=== PATIENT | female | born 1995 | race Caucasian/White ===

== ENCOUNTER 2018-07-20 10:55 | Emergency (ER) | payer OTHER, MEDICARE, MEDICAID, SELFPAY ==
[2018-07-20 10:58] VITALS: BP 120/85; PULSE 74; RESP 14; TEMP 36.5; O2SAT 98; BMI 42.0
[2018-07-20 11:43] LABS: Add Manual Diff / Slide Review NO; Basophils Percent Auto 0.5 % (0-2); Eosinophils Percent Auto 0.7 % (2-4); Hemoglobin 13.3 g/dL (12.0-16.0); Lymphocytes Percent Auto 25.6 % (25-40); Mean Corpuscular HGB Conc 34.9 % (30-36); Mean Corpuscular Hemoglobin 31.2 PG (26-34); Mean Corpuscular Volume 89.4 fL (80-100); Monocytes Percent Auto 10.3 % (3-14); Neutrophils Absolute Auto 3000 /uL (3000-5900); Neutrophils Percent Auto 62.9 % (50-75); Platelet Count 149 X10^3/uL (150-400); Red Blood Cell Count 4.25 X10^6/uL (4.0-5.2); Red Cell Distribution Width 11.7 % (11.6-14.8); White Blood Cell Count 4.8 X10^3/uL (4.5-11.0)
[2018-07-20 11:51] LABS: INR 1.1 (0.9-1.3); Prothrombin Time 11.6 SECONDS (10.1-12.7)
[2018-07-20 11:53] LABS: PTT Partial Thromboplastin Tim 21 SECONDS (26.4-36.2)
[2018-07-20 11:55] LABS: Alanine Aminotransferase 21 IU/L (9-52); Albumin Globulin Ratio 1.6 (1.0-2.8); Alkaline Phosphatase 49 U/L (38-126); Aspartate Aminotransferase 23 IU/L (14-36); Bilirubin Total 0.3 mg/dL (0.2-1.3); Blood Urea Nitrogen 7 mg/dL (7-17); Calcium 8.8 mg/dL (8.4-10.2); Carbon Dioxide 21 mmol/L (22-32); Chloride 107 mmol/L (98-107); Estimated Glomerular Filt Rate > 60.0 mL/min (>60); Globulin 2.5 g/dL (1.7-4.1); Glucose 132 mg/dL (70-100); Potassium 3.8 mmol/L (3.4-5.1); Sodium 141 mmol/L (137-145); Total Protein 6.5 g/dL (6.3-8.2)
[2018-07-20 11:56] LABS: HEMOLYSIS < 15 (0-50); Lipase 24 U/L (23-300)
[2018-07-20 12:34] VITALS: BP 109/72; PULSE 69; RESP 16; TEMP 36.8; O2SAT 98
--- NOTE | 2018-07-20 12:41 | DI.RAD.S_ITS ---
PROCEDURE: XR ACUTE ABDOMEN SERIES INDICATIONS: abd, sob, blood in stool, lymph node neck TECHNIQUE: One view chest and two views of the abdomen were acquired. COMPARISON: None. FINDINGS: Surgical changes and devices: None. Chest: Lungs are clear. Heart size is normal. No pleural effusions. No pneumoperitoneum. Abdomen: Bowel gas pattern is normal. No suspicious calcifications. Visualized solid organ contours appear normal. Bones: No suspicious bony lesions. IMPRESSION: No evidence of bowel structure no gross free air. No acute cardiopulmonary pathology. Dictated by: Gary Carrasquillo M.D. on 07/20/2018 at 13:37 Approved by: Gary Carrasquillo M.D. on 07/20/2018 at 13:42
--- NOTE | 2018-07-20 12:43 | ED.ABDPAIN ---
HPI - Abdominal Pain General Chief Complaint: Abdominal Pain Stated Complaint: lymph nodes swollen, fatigued, blood in stool Time Seen by Provider: 07/20/18 12:25 Source: patient and family Mode of arrival: ambulatory Limitations: no limitations History of Present Illness HPI narrative: This is a 22-year-old female who comes to the emergency department with multiple concerns. Patient states she has some swelling of the lymph nodes on the right side of her neck. This is been present for several days and is tender. She states that she has been having some abdominal pain which she states she has abdominal pain intermittently and takes medication for sometimes but has been worse lately. She states she has also had some blood in her stool. She describes it as being on the toilet paper when she wipes. Patient has not had any fevers she has had a little bit of upper respiratory congestion consistent with a cold according to her. She is not having any ear pain. She has felt a little short of breath for the last couple weeks. She has felt more fatigued but states that she has chronic fatigue so it is difficult for to tell if this is an exacerbation versus something different. Her abdominal pain she has had some workup for and had an ex lap which was for endometriosis and was negative. She states that her stool seems sort of mucousy. She has not had a lot of frequency, urgency or dysuria. No new rashes or skin changes. Patient has not had any new medication changes recently. Patient has a history significant for postural tachycardia syndrome. Fibromyalgia. She states that she was evaluated with ex lap for endometriosis on although it was negative she suspects she does have it in is seeing a new specialty physician. Related Data Home Medications Medication Instructions Recorded Confirmed norethin-e.estradiol triphasic 1 ea PO DAILY #0 12/08/17 07/20/18 [Alyacen (28)] acetaminophen 650 mg PO PRN PRN #0 12/15/17 07/20/18 albuterol sulfate [Ventolin HFA] 2 puff INHALATION Q4H PRN 07/20/18 07/20/18 hydroxyzine HCl 1 tab PO Q8H PRN 07/20/18 07/20/18 propranolol 1 tab PO TID 07/20/18 07/20/18 tramadol 1 tab PO BID PRN 07/20/18 07/20/18 Previous Rx's Medication Instructions Recorded oxycodone-acetaminophen [Percocet] 0 tab PO Q4HP PRN #20 tab 12/15/17 Allergies Allergy/AdvReac Type Severity Reaction Status Date / Time azithromycin [From Zithromax] Allergy Intermediate Rash Verified 07/20/18 11:02 amoxicillin [AMOXICILLIN] Allergy Unknown REACTION Verified 07/20/18 11:02 NOT LISTED Review of Systems Review of Systems All systems reviewed & are unremarkable except as noted in HPI and below Constitutional Denies body ache(s), Reports fatigue, Denies fever(s) and Denies weakness ENT Ears, Nose, Mouth, and Throat: Reports nasal congestion, Denies sinus pain, Denies sinus pressure and Reports other (Lymph nodes big on right) Cardiovascular Denies chest pain, Denies syncope, Denies irregular heart rhythm, Denies lightheadedness, Denies palpitations, Reports dyspnea and Denies orthopnea Respiratory Denies chest congestion, Reports cough, Denies hemoptysis, Denies pain on inspiration, Reports dyspnea and Denies wheezing Gastrointestinal Gastrointestinal: Reports abdominal pain, Denies melena, Reports hematochezia (Blood on toilet paper), Denies change in bowel habits, Denies constipation, Reports heartburn, Denies diarrhea, Reports nausea (Chronic nausea) and Denies vomiting Genitourinary Denies abnormal menses, Denies abnormal vaginal bleeding, Denies hematuria, Denies urinary frequency, Denies flank pain, Denies urinary incontinence and Denies urinary urgency Integumentary/Breasts Denies rash Neurologic Denies syncope and Denies weakness Endocrine Reports fatigue and Denies palpitations Allergic/Immunologic Denies wheezing PFSH Medical History Fibromyalgia (Acute) POTS (postural orthostatic tachycardia syndrome) (Acute) Surgical History H/O exploratory laparotomy (Acute) Social History Smoking Status: Never smoker alcohol intake: current substance use type: marijuana Exam Narrative Exam Narrative: GEN: Obese, well-appearing female, alert and oriented x , patient appears to be in no acute distress. HEENT: Atraumatic, pupils are equal round reactive to light, extraocular movements are intact, nares are clear, TMs are clear with no fluid, there is no conjunctival pallor. Throat is clear without any exudates, erythema, tonsillar enlargement or uvular deviation, patient does have an increased size of her right anterior cervical lymph nodes. I am able to palpate 2 or 3 individually that are slightly tender although none feel to be more than a cm in size. They are not fluctuant. There is no erythema. I am not able to visualize the swelling only by palpation. Patient does not have any clavicular nodes. HEART: Regular rate and rhythm without murmur, clicks, rubs. No carotid bruits, pulses are equal in upper and lower extremities LUNGS:Lungs clear to auscultation, no wheezes, rales, crackles, chest moves symmetrically ABD:bowel sounds normal, soft, non-tender, no guarding, rebound, rigidity, no masses noted, no hepatosplenomegaly :No CVA tenderness MSCL: Non-tender, no muscle atrophy, muscles strength 5/5 upper and lower extremities, full range of motion, normal gait NEURO:CN 2-12 intact, sensation normal Initial Vital Signs Initial Vital Signs: Vital Signs Temperature 97.7 F 07/20/18 10:58 Pulse Rate 74 07/20/18 10:58 Respiratory Rate 14 07/20/18 10:58 Blood Pressure 120/85 07/20/18 10:58 Pulse Oximetry 98 07/20/18 10:58 Course Orders Ordered: ED Orders 07/20/18 11:31 Complete Blood Count AUTO DIFF Stat Comprehensive Metabolic Panel Stat Lipase Stat Partial Thromboplastin Time Stat Prothrombin Time INR Stat 07/20/18 12:41 XR acute abdomen series Stat Discontinued Medications Sodium Chloride (Normal Saline 0.9%) 1,000 mls @ 1,000 mls/hr IV BOLUS ONE Stop: 07/20/18 13:40 Last Infusion: 07/20/18 14:35 Dose: 0 mls/hr Admin: 07/20/18 12:46 Dose: 1,000 mls/hr Vital Signs - 8 hr 07/20/18 12:34 07/20/18 14:11 07/20/18 15:18 Temperature 98.2 F 98.4 F 97.6 F Pulse Rate 69 70 69 Respiratory Rate 16 16 16 Blood Pressure [Left Arm] 109/72 113/75 115/68 Pulse Oximetry 98 100 100 MDM - Abdominal Pain Lab Data Attestation: I reviewed the patient's lab results. Result diagrams: 07/20/18 11:31 07/20/18 11:31 Lab Results 07/20/18 07/20/18 07/20/18 Range/Units 11:31 11:31 11:31 WBC 4.8 (4.5-11.0) X10^3/uL RBC 4.25 (4.0-5.2) X10^6/uL Hgb 13.3 (12.0-16.0) g/dL Hct 38.0 (36-46) % MCV 89.4 (80-100) fL MCH 31.2 (26-34) PG MCHC 34.9 (30-36) % RDW 11.7 (11.6-14.8) % Plt Count 149 L (150-400) X10^3/uL Neut % (Auto) 62.9 (50-75) % Lymph % (Auto) 25.6 (25-40) % [place] % (Auto) 10.3 (3-14) % Eos % (Auto) 0.7 L (2-4) % Baso % (Auto) 0.5 (0-2) % Neut # (Auto) 3000 (7664-7631) /uL PT 11.6 (10.1-12.7) SECONDS INR 1.1 (0.9-1.3) APTT 21 L (26.4-36.2) SECONDS Sodium 141 (137-145) mmol/L Potassium 3.8 (3.4-5.1) mmol/L Chloride 107 (98-107) mmol/L Carbon Dioxide 21 L (22-32) mmol/L BUN 7 (7-17) mg/dL Creatinine 0.70 (0.52-1.04) mg/dL Estimated GFR > 60.0 (>60) mL/min BUN/Creatinine Ratio 10.0 (6-22) Glucose 132 H (70-100) mg/dL Calcium 8.8 (8.4-10.2) mg/dL Total Bilirubin 0.3 (0.2-1.3) mg/dL AST 23 (14-36) IU/L ALT 21 (9-52) IU/L Alkaline Phosphatase 49 (38-126) U/L Total Protein 6.5 (6.3-8.2) g/dL Albumin 4.0 (3.5-5.0) g/dL Globulin 2.5 (1.7-4.1) g/dL Albumin/Globulin Ratio 1.6 (1.0-2.8) Lipase 24 (23-300) U/L Point of care testing: Point of Care Testing Test Results Negative Urine Dip Bedside Urine Glucose Negative Bedside Urine Bilirubin - Negative Bedside Urine Ketone - Negative Urine Specific [place] 1.030 Bedside Urine Occult Blood - Negative Bedside Urine pH 6.0 Bedside Urine Protein - Negative Bedside Urine Urobilinogen - Negative Bedside Urine Nitrite - Negative Bedside Urine Leukocytes - Negative Esterase Imaging Data [facility]AS xray: Radiologist's impression: [address] [address] XRay Report Signed Patient: Linh Guo EMR#: [id number] : 1995Acct:[id number] Age/Sex: 22 / FDate of Service: 07/20/18 Loc: ED Accession Number: [id number] Procedure: XR acute abdomen series Ordering Provider: Eboni Valdovinos D.O. PROCEDURE: XR ACUTE ABDOMEN SERIES INDICATIONS: abd, sob, blood in stool, lymph node neck TECHNIQUE: One view chest and two views of the abdomen were acquired. COMPARISON: None. FINDINGS: Surgical changes and devices: None. Chest: Lungs are clear. Heart size is normal. No pleural effusions. No pneumoperitoneum. Abdomen: Bowel gas pattern is normal. No suspicious calcifications. Visualized solid organ contours appear normal. Bones: No suspicious bony lesions. IMPRESSION: No evidence of bowel structure no gross free air. No acute cardiopulmonary pathology. Dictated by: Gary Carrasquillo M.D. on 07/20/2018 at 13:37 Approved by: Gary Carrasquillo M.D. on 07/20/2018 at 13:42 [facility] Narrative Medical decision making narrative: Patient has multiple complaints. I suspect that the swollen lymph nodes on the side of her neck may not be related to her description of abdominal pain Um and blood in her stool. Patient has had a little bit of an upper respiratory infection although her exam is very mild in terms of any congestion. We did discuss that she can about a week if her symptoms resolve the lymph nodes improve she does not need any particular follow-up for that problem but if they continue or enlarged she needs return either here or primary care if they are not improving. Patient's lab work did not show any major changes although platelets were slightly low. She was referred to her primary care physician for further evaluation. She did not have any more episodes here in the emergency department and on re-evaluation we discussed her signs and symptoms as well as lab work and plan for follow-up with PCP. Discharge Plan Departure Patient Disposition: Home Clinical Impression: Abdominal pain, Lymphadenopathy of right cervical region Discharge Date/Time: 07/20/18 15:26 Interventions: ED Discharge Assessment Last Done: 07/20/18 15:25 Instructions: DI for Abdominal Pain-Adult, DI for Lymphadenopathy Activity Restrictions/Additional Instructions: Follow-up with primary care in the next 3-5 days for recheck. Call this afternoon or Monday for an appointment. You may continue your home medications as prescribed. You may use warm compresses to the affected area on the right side of your neck. General Return Instructions : Return to the Emergency Department for any new or worsening symptoms. Return to the Emergency Department for fevers greater than 100.4 F, rapidly increasing swelling node, soft or fluctuant lymph node/mass, New or severe abdominal pain, chest pain, shortness of breath, passing out, persistent vomiting, worrisome rash, or any other new or worsening symptoms. Prescriptions: No Action norethin-e.estradiol triphasic [Alyacen (28)] 1 EACH tablet 1 ea PO DAILY Qty: 0 RF: 0 acetaminophen 325 MG tablet 650 mg PO PRN PRN (Reason: pain) Qty: 0 RF: 0 oxycodone-acetaminophen [Percocet] 5 MG/325 MG tablet PO Q4HP PRNQty: 20 RF: 0 tramadol 50 mg tablet 1 tab PO BID PRN (Reason: pain) RF: 0 hydroxyzine HCl 25 mg tablet 1 tab PO Q8H PRN (Reason: unknown) RF: 0 albuterol sulfate [Ventolin HFA] 90 mcg/actuation HFA aerosol inhaler 2 puff Inhalation Q4H PRN (Reason: Shortness Of Breath) RF: 0 propranolol 20 mg tablet 1 tab PO TID RF: 0
[2018-07-20] MEDS: SODIUM CHLORIDE 0.9% 1,000 ML 1000 ML IV (12:46)
[2018-07-20 14:11] VITALS: BP 113/75; PULSE 70; RESP 16; TEMP 36.9; O2SAT 100
[2018-07-20 15:18] VITALS: BP 115/68; PULSE 69; RESP 16; TEMP 36.4; O2SAT 100
== END 2018-07-20 15:26 | disposition home or self-care (01) ==
PROVIDERS: Emergency Provider Emergency Medicine; PCP Obstetrics & Gynecology
DX: R10.9 Unspecified abdominal pain (principal); R59.0 Localized enlarged lymph nodes
CPT/HCPCS: 36591; 74022; 80053; 81003; 81025; 83690; 85025; 85610; 85730; 96360; 96361; 99283; 99284

== ENCOUNTER 2018-10-23 18:34 | Emergency (ER) | payer OTHER, MEDICARE, MEDICAID, SELFPAY ==
[2018-10-23 18:39] VITALS: BP 114/81; PULSE 66; RESP 18; TEMP 36.4; O2SAT 99
[2018-10-23 19:18] LABS: Add Manual Diff / Slide Review NO; Basophils Absolute Auto 100 /uL (0-100); Basophils Percent Auto 0.9 % (0-2); Eosinophils Absolute Auto 100 /uL (0-450); Eosinophils Percent Auto 0.6 % (2-4); Hemoglobin 14.8 g/dL (12.0-16.0); Lymphocytes Absolute Auto 2600 /uL (1100-4500); Lymphocytes Percent Auto 30.7 % (25-40); Mean Corpuscular HGB Conc 34.3 % (30-36); Mean Corpuscular Hemoglobin 30.5 PG (26-34); Mean Corpuscular Volume 88.9 fL (80-100); Monocytes Absolute Auto 500 /uL (0-900); Monocytes Percent Auto 6.2 % (3-14); Neutrophils Absolute Auto 5300 /uL (1500-7000); Neutrophils Percent Auto 61.6 % (50-75); Platelet Count 234 X10^3/uL (150-400); Red Blood Cell Count 4.84 X10^6/uL (4.0-5.2); Red Cell Distribution Width 12.4 % (11.6-14.8); White Blood Cell Count 8.6 X10^3/uL (4.5-11.0)
[2018-10-23 19:26] LABS: BUN Creatinine Ratio 12.5 (6-22); Blood Urea Nitrogen 10 mg/dL (7-17); Calcium 9.7 mg/dL (8.4-10.2); Carbon Dioxide 26 mmol/L (22-32); Chloride 105 mmol/L (98-107); Estimated Glomerular Filt Rate > 60.0 mL/min (>60); Glucose 103 mg/dL (70-100); HEMOLYSIS < 15 (0-50); Potassium 4.1 mmol/L (3.4-5.1); Sodium 140 mmol/L (137-145)
[2018-10-23 19:27] LABS: D Dimer < 200 ng/mL (<230)
[2018-10-23 20:34] VITALS: BP 119/57; PULSE 58; RESP 16; O2SAT 98
--- NOTE | 2018-10-23 20:51 | ED.SOB ---
HPI - SOB/Dyspnea General Chief Complaint: Shortness of Breath/Dyspnea Stated Complaint: DIFFCULTY BREATHING CHEST TIGHTNESS Time Seen by Provider: 10/23/18 20:00 Source: patient and family Mode of arrival: ambulatory Limitations: no limitations History of Present Illness 22-year-old female, nonsmoker with long complicated medical history presents at the request of her primary care provider. She has had trouble with various and widespread symptoms for many months and the current operating diagnosis is that she perhaps has lupus or some type. Patient presents with ongoing shortness of breath and pleuritic-type chest pain. She denies any recent travel, history of blood clots but does take control. She denies any lower extremity swelling or pain. She was sent for evaluation of the possibility of the PE MD Complaint: shortness of breath and pain with inspiration Onset (ago): month(s) Severity: moderate Consistency/Duration: constant Relieving factors: nothing Exacerbating factors: coughing and inspiration Treatment prior to arrival: none Related Data Home Medications Medication Instructions Recorded Confirmed norethin-e.estradiol triphasic 1 ea PO DAILY #0 12/08/17 07/20/18 [Alyacen (28)] acetaminophen 650 mg PO PRN PRN #0 12/15/17 07/20/18 albuterol sulfate [Ventolin HFA] 2 puff INHALATION Q4H PRN 07/20/18 07/20/18 hydroxyzine HCl 1 tab PO Q8H PRN 07/20/18 07/20/18 propranolol 1 tab PO TID 07/20/18 07/20/18 tramadol 1 tab PO BID PRN 07/20/18 07/20/18 Previous Rx's Medication Instructions Recorded oxycodone-acetaminophen [Percocet] 0 tab PO Q4HP PRN #20 tab 12/15/17 ondansetron 4 mg PO TID-QID PRN #10 tab 10/23/18 Allergies Allergy/AdvReac Type Severity Reaction Status Date / Time azithromycin [From Zithromax] Allergy Intermediate Rash Verified 07/20/18 11:02 amoxicillin [AMOXICILLIN] Allergy Unknown REACTION Verified 07/20/18 11:02 NOT LISTED Review of Systems Constitutional Denies chills, Denies fever(s), Denies lethargy and Denies weakness Eyes Denies change in vision, Denies eye discharge, Denies irritation and Denies loss of vision ENT Ears, Nose, Mouth, and Throat: Denies change in voice, Denies neck pain and Denies sore throat Cardiovascular Denies chest pain, Denies irregular heart rhythm, Denies lightheadedness, Denies palpitations, Reports dyspnea, Denies dyspnea on exertion and Denies orthopnea Respiratory Denies cough, Reports pain on inspiration, Reports pain with cough, Reports dyspnea, Denies dyspnea on exertion and Denies wheezing Gastrointestinal Gastrointestinal: Denies abdominal pain, Denies change in bowel habits, Denies diarrhea, Denies nausea and Denies vomiting Genitourinary Denies hematuria, Denies flank pain, Denies urinary incontinence and Denies urinary urgency Musculoskeletal Denies neck pain Integumentary/Breasts Denies pruritus, Denies erythema, Denies rash and Denies wounds Neurologic Denies confusion, Denies loss of vision and Denies weakness Psychiatric Denies anxiety, Denies confusion, Denies depression, Denies homicidal ideation and Denies suicidal ideation Endocrine Denies palpitations Hematologic/Lymphatic Denies easy bruising Allergic/Immunologic Denies wheezing PFSH Medical History Fibromyalgia (Acute) POTS (postural orthostatic tachycardia syndrome) (Acute) Surgical History H/O exploratory laparotomy (Acute) Social History Smoking Status: Current some day smoker alcohol intake: current substance use type: marijuana Social History Smoking Status: Current some day smoker alcohol intake: current substance use type: marijuana Exam Narrative Exam Narrative: GENERAL: 22year old female a bit tearful and anxious HEAD: Atraumatic. Normocephalic. No temporal or scalp tenderness. EYES: Pupils equal round and reactive. Extraocular motions intact. No scleral icterus. No injection or drainage. ENT: Nose without bleeding, purulent drainage or septal hematoma. Throat without erythema, tonsillar hypertrophy or exudate. Uvula midline. Airway patent. NECK: Trachea midline. No JVD or lymphadenopathy. Supple, nontender, no meningeal signs. CARDIOVASCULAR: Regular rate and rhythm without murmurs, gallops, or rubs. RESPIRATORY: Clear to auscultation. Breath sounds equal bilaterally. No wheezes, rales, or rhonchi. GASTROINTESTINAL: Abdomen soft, non-tender, nondistended. No hepato-splenomegaly, or palpable masses. No guarding. EXTREMITIES: No clubbing, cyanosis, or edema. No joint tenderness, effusion, or edema noted. BACK: Nontender without deformity or crepitance. No flank tenderness. NEURO: AOx3. SKIN: No rash or erythema. Initial Vital Signs Initial Vital Signs: Vital Signs Temperature 97.5 F L 10/23/18 18:39 Pulse Rate 66 10/23/18 18:39 Respiratory Rate 18 10/23/18 18:39 Blood Pressure 114/81 10/23/18 18:39 Pulse Oximetry 99 10/23/18 18:39 Course Orders Ordered: ED Orders 10/23/18 18:55 Basic Metabolic Panel Stat Complete Blood Count AUTO DIFF Stat D Dimer Stat 10/23/18 21:15 XR chest 2V Stat Discontinued Medications Ondansetron HCl (Zofran Odt) 4 mg SL NOW ONE Stop: 10/23/18 21:16 Last Admin: 10/23/18 21:23 Dose: 4 mg Vital Signs - 8 hr 10/23/18 20:34 10/23/18 21:48 Pulse Rate 58 L 62 Respiratory Rate 16 16 Blood Pressure [Right Arm] 119/57 L 111/78 Pulse Oximetry 98 100 MDM - SOB/Dyspnea Medical Records Attestation: I reviewed the patient's medical records. Lab Data Attestation: I reviewed the patient's lab results. Result diagrams: 10/23/18 18:55 10/23/18 18:55 Lab Results 10/23/18 10/23/18 10/23/18 Range/Units 18:55 18:55 18:55 WBC 8.6 (4.5-11.0) X10^3/uL RBC 4.84 (4.0-5.2) X10^6/uL Hgb 14.8 (12.0-16.0) g/dL Hct 43.0 (36-46) % MCV 88.9 (80-100) fL MCH 30.5 (26-34) PG MCHC 34.3 (30-36) % RDW 12.4 (11.6-14.8) % Plt Count 234 (150-400) X10^3/uL Neut % (Auto) 61.6 (50-75) % Lymph % (Auto) 30.7 (25-40) % [place] % (Auto) 6.2 (3-14) % Eos % (Auto) 0.6 L (2-4) % Baso % (Auto) 0.9 (0-2) % Neut # (Auto) 5300 (9880-5816) /uL Lymph # (Auto) 2600 (9069-0213) /uL [place] # (Auto) 500 (0-900) /uL Eos # (Auto) 100 (0-450) /uL Baso # (Auto) 100 (0-100) /uL D-Dimer < 200 (<230) ng/mL Sodium 140 (137-145) mmol/L Potassium 4.1 (3.4-5.1) mmol/L Chloride 105 (98-107) mmol/L Carbon Dioxide 26 (22-32) mmol/L BUN 10 (7-17) mg/dL Creatinine 0.80 (0.52-1.04) mg/dL Estimated GFR > 60.0 (>60) mL/min BUN/Creatinine Ratio 12.5 (6-22) Glucose 103 H (70-100) mg/dL Calcium 9.7 (8.4-10.2) mg/dL Imaging Data Chest x-ray: Radiologist's impression: [place] [address] XRay Report Signed Patient: Linh Guo EMR#: [id number] : 1995Acct:[id number] Age/Sex: 22 / FDate of Service: 10/23/18 Loc: ED Accession Number: [id number] Procedure: XR chest 2V Ordering Provider: Navdeep Nayak D.O. PROCEDURE: XR CHEST 2V INDICATIONS: Shortness of breath TECHNIQUE: 2 views of the chest were acquired. COMPARISON: [facility], , XR CHEST 2 VIEWS, 10/02/2018, 10:50. FINDINGS: Surgical changes and devices: None. Lungs and pleura: Lungs are clear. No pleural effusions or pneumothorax. Mediastinum: Mediastinal contours are normal. Heart size is normal. Bones and chest wall: No suspicious bony abnormalities. Soft tissues appear unremarkable. IMPRESSION: 1. No acute cardiopulmonary disease. Dictated by: Jamaal Zavala M.D. on 10/23/2018 at 21:34 MDM Narrative Medical decision making narrative: Multiple etiologies for patient's symptoms considered including: [Pleurisy, consequence of chronic illness, pulmonary embolism, myocardial infarction, pneumothorax versus other] Patient's symptoms improved or duration of stay with above-stated therapies. Findings and discharge diagnosis discussed with patient/family followed by verbalization of understanding Return precautions discussed with patient/family whom verbalize understanding. Discharge Plan Departure Patient Disposition: Home Clinical Impression: Acute dyspnea, Pleurisy Discharge Date/Time: 10/23/18 21:56 Interventions: ED Discharge Assessment Last Done: 10/23/18 21:54 Instructions: DI for Pleurisy, DI for Shortness of Breath Activity Restrictions/Additional Instructions: *You have been diagnosed with [ acute on chronic dyspnea with pleurisy] *What to do: *Take medications as directed: your prescription has been sent to [facility] in [place] *Follow up with your primary care provider in 2-3 days, call for an appointment. Let them know you were seen in the Emergency Department and that we ask that you be seen in follow up *Return to ER if you should have any new, worsening or concerning symptoms Prescriptions: New ondansetron 4 mg tablet,disintegrating 4 mg PO TID-QID PRN (Reason: nausea and vomiting) Qty: 10 RF: 0 No Action norethin-e.estradiol triphasic [Alyacen (28)] 1 EACH tablet 1 ea PO DAILY Qty: 0 RF: 0 acetaminophen 325 MG tablet 650 mg PO PRN PRN (Reason: pain) Qty: 0 RF: 0 oxycodone-acetaminophen [Percocet] 5 MG/325 MG tablet PO Q4HP PRNQty: 20 RF: 0 tramadol 50 mg tablet 1 tab PO BID PRN (Reason: pain) RF: 0 hydroxyzine HCl 25 mg tablet 1 tab PO Q8H PRN (Reason: unknown) RF: 0 albuterol sulfate [Ventolin HFA] 90 mcg/actuation HFA aerosol inhaler 2 puff Inhalation Q4H PRN (Reason: Shortness Of Breath) RF: 0 propranolol 20 mg tablet 1 tab PO TID RF: 0
--- NOTE | 2018-10-23 21:15 | DI.RAD.S_ITS ---
PROCEDURE: XR CHEST 2V INDICATIONS: Shortness of breath TECHNIQUE: 2 views of the chest were acquired. COMPARISON: [facility], CR, XR CHEST 2 VIEWS, 10/02/2018, 10:50. FINDINGS: Surgical changes and devices: None. Lungs and pleura: Lungs are clear. No pleural effusions or pneumothorax. Mediastinum: Mediastinal contours are normal. Heart size is normal. Bones and chest wall: No suspicious bony abnormalities. Soft tissues appear unremarkable. IMPRESSION: 1. No acute cardiopulmonary disease. Dictated by: Jamaal Zavala M.D. on 10/23/2018 at 21:34 Approved by: Jamaal Zavala M.D. on 10/23/2018 at 21:35
[2018-10-23] MEDS: ONDANSETRON 4 MG ODT SL (21:23)
[2018-10-23 21:48] VITALS: BP 111/78; PULSE 62; RESP 16; O2SAT 100
--- NOTE | 2018-10-24 03:18 | ED_ITS ---
HPI - SOB/Dyspnea General Chief Complaint: Shortness of Breath/Dyspnea Stated Complaint: DIFFCULTY BREATHING CHEST TIGHTNESS Time Seen by Provider: 10/23/18 20:00 Source: patient and family Mode of arrival: ambulatory Limitations: no limitations History of Present Illness 22-year-old female, nonsmoker with long complicated medical history presents at the request of her primary care provider. She has had trouble with various and widespread symptoms for many months and the current operating diagnosis is that she perhaps has lupus or some type. Patient presents with ongoing shortness of breath and pleuritic-type chest pain. She denies any recent travel, history of blood clots but does take control. She denies any lower extremity swelling or pain. She was sent for evaluation of the possibility of the PE MD Complaint: shortness of breath and pain with inspiration Onset (ago): month(s) Severity: moderate Consistency/Duration: constant Relieving factors: nothing Exacerbating factors: coughing and inspiration Treatment prior to arrival: none Related Data Home Medications Medication Instructions Recorded Confirmed norethin-e.estradiol triphasic 1 ea PO DAILY #0 12/08/17 07/20/18 [Alyacen (28)] acetaminophen 650 mg PO PRN PRN #0 12/15/17 07/20/18 albuterol sulfate [Ventolin HFA] 2 puff INHALATION Q4H PRN 07/20/18 07/20/18 hydroxyzine HCl 1 tab PO Q8H PRN 07/20/18 07/20/18 propranolol 1 tab PO TID 07/20/18 07/20/18 tramadol 1 tab PO BID PRN 07/20/18 07/20/18 Previous Rx's Medication Instructions Recorded oxycodone-acetaminophen [Percocet] 0 tab PO Q4HP PRN #20 tab 12/15/17 ondansetron 4 mg PO TID-QID PRN #10 tab 10/23/18 Allergies Allergy/AdvReac Type Severity Reaction Status Date / Time azithromycin [From Zithromax] Allergy Intermediate Rash Verified 07/20/18 11:02 amoxicillin [AMOXICILLIN] Allergy Unknown REACTION Verified 07/20/18 11:02 NOT LISTED Review of Systems Constitutional Denies chills, Denies fever(s), Denies lethargy and Denies weakness Eyes Denies change in vision, Denies eye discharge, Denies irritation and Denies loss of vision ENT Ears, Nose, Mouth, and Throat: Denies change in voice, Denies neck pain and Denies sore throat Cardiovascular Denies chest pain, Denies irregular heart rhythm, Denies lightheadedness, Denies palpitations, Reports dyspnea, Denies dyspnea on exertion and Denies orthopnea Respiratory Denies cough, Reports pain on inspiration, Reports pain with cough, Reports dyspnea, Denies dyspnea on exertion and Denies wheezing Gastrointestinal Gastrointestinal: Denies abdominal pain, Denies change in bowel habits, Denies diarrhea, Denies nausea and Denies vomiting Genitourinary Denies hematuria, Denies flank pain, Denies urinary incontinence and Denies urinary urgency Musculoskeletal Denies neck pain Integumentary/Breasts Denies pruritus, Denies erythema, Denies rash and Denies wounds Neurologic Denies confusion, Denies loss of vision and Denies weakness Psychiatric Denies anxiety, Denies confusion, Denies depression, Denies homicidal ideation and Denies suicidal ideation Endocrine Denies palpitations Hematologic/Lymphatic Denies easy bruising Allergic/Immunologic Denies wheezing PFSH Medical History Fibromyalgia (Acute) POTS (postural orthostatic tachycardia syndrome) (Acute) Surgical History H/O exploratory laparotomy (Acute) Social History Smoking Status: Current some day smoker alcohol intake: current substance use type: marijuana Social History Smoking Status: Current some day smoker alcohol intake: current substance use type: marijuana Exam Narrative Exam Narrative: GENERAL: 22year old female a bit tearful and anxious HEAD: Atraumatic. Normocephalic. No temporal or scalp tenderness. EYES: Pupils equal round and reactive. Extraocular motions intact. No scleral icterus. No injection or drainage. ENT: Nose without bleeding, purulent drainage or septal hematoma. Throat without erythema, tonsillar hypertrophy or exudate. Uvula midline. Airway patent. NECK: Trachea midline. No JVD or lymphadenopathy. Supple, nontender, no meningeal signs. CARDIOVASCULAR: Regular rate and rhythm without murmurs, gallops, or rubs. RESPIRATORY: Clear to auscultation. Breath sounds equal bilaterally. No wheezes , rales, or rhonchi. GASTROINTESTINAL: Abdomen soft, non-tender, nondistended. No hepato-splenomegaly , or palpable masses. No guarding. EXTREMITIES: No clubbing, cyanosis, or edema. No joint tenderness, effusion, or edema noted. BACK: Nontender without deformity or crepitance. No flank tenderness. NEURO: AOx3. SKIN: No rash or erythema. Initial Vital Signs Initial Vital Signs: Vital Signs Temperature 97.5 F L 10/23/18 18:39 Pulse Rate 66 10/23/18 18:39 Respiratory Rate 18 10/23/18 18:39 Blood Pressure 114/81 10/23/18 18:39 Pulse Oximetry 99 10/23/18 18:39 Course Orders Ordered: ED Orders 10/23/18 18:55 Basic Metabolic Panel Stat Complete Blood Count AUTO DIFF Stat D Dimer Stat 10/23/18 21:15 XR chest 2V Stat Discontinued Medications Ondansetron HCl (Zofran Odt) 4 mg SL NOW ONE Stop: 10/23/18 21:16 Last Admin: 10/23/18 21:23 Dose: 4 mg Vital Signs - 8 hr 10/23/18 20:34 10/23/18 21:48 Pulse Rate 58 L 62 Respiratory Rate 16 16 Blood Pressure [Right Arm] 119/57 L 111/78 Pulse Oximetry 98 100 MDM - SOB/Dyspnea Medical Records Attestation: I reviewed the patient's medical records. Lab Data Attestation: I reviewed the patient's lab results. Result diagrams: 10/23/18 18:55 10/23/18 18:55 Lab Results 10/23/18 10/23/18 10/23/18 Range/Units 18:55 18:55 18:55 WBC 8.6 (4.5-11.0) X10^3/uL RBC 4.84 (4.0-5.2) X10^6/uL Hgb 14.8 (12.0-16.0) g/dL Hct 43.0 (36-46) % MCV 88.9 (80-100) fL MCH 30.5 (26-34) PG MCHC 34.3 (30-36) % RDW 12.4 (11.6-14.8) % Plt Count 234 (150-400) X10^3/uL Neut % (Auto) 61.6 (50-75) % Lymph % (Auto) 30.7 (25-40) % [place] % (Auto) 6.2 (3-14) % Eos % (Auto) 0.6 L (2-4) % Baso % (Auto) 0.9 (0-2) % Neut # (Auto) 5300 (0221-8985) /uL Lymph # (Auto) 2600 (3375-9485) /uL [place] # (Auto) 500 (0-900) /uL Eos # (Auto) 100 (0-450) /uL Baso # (Auto) 100 (0-100) /uL D-Dimer < 200 (<230) ng/mL Sodium 140 (137-145) mmol/L Potassium 4.1 (3.4-5.1) mmol/L Chloride 105 (98-107) mmol/L Carbon Dioxide 26 (22-32) mmol/L BUN 10 (7-17) mg/dL Creatinine 0.80 (0.52-1.04) mg/dL Estimated GFR > 60.0 (>60) mL/min BUN/Creatinine Ratio 12.5 (6-22) Glucose 103 H (70-100) mg/dL Calcium 9.7 (8.4-10.2) mg/dL Imaging Data Chest x-ray: Radiologist's impression: [place] [address] XRay Report Signed Patient: Linh Guo EMR#: [id number] : 1995Acct:[id number] Age/Sex: 22 / FDate of Service: 10/23/18 Loc: ED Accession Number: [id number] Procedure: XR chest 2V Ordering Provider: Navdeep Nayak D.O. PROCEDURE: XR CHEST 2V INDICATIONS: Shortness of breath TECHNIQUE: 2 views of the chest were acquired. COMPARISON: [facility], , XR CHEST 2 VIEWS, 10/02/2018, 10:50. FINDINGS: Surgical changes and devices: None. Lungs and pleura: Lungs are clear. No pleural effusions or pneumothorax. Mediastinum: Mediastinal contours are normal. Heart size is normal. Bones and chest wall: No suspicious bony abnormalities. Soft tissues appear unremarkable. IMPRESSION: 1. No acute cardiopulmonary disease. Dictated by: Jamaal Zavala M.D. on 10/23/2018 at 21:34 MDM Narrative Medical decision making narrative: Multiple etiologies for patient's symptoms considered including: [Pleurisy, consequence of chronic illness, pulmonary embolism, myocardial infarction, pneumothorax versus other] Patient's symptoms improved or duration of stay with above-stated therapies. Findings and discharge diagnosis discussed with patient/family followed by verbalization of understanding Return precautions discussed with patient/family whom verbalize understanding. Discharge Plan Departure Patient Disposition: Home Clinical Impression: Acute dyspnea, Pleurisy Discharge Date/Time: 10/23/18 21:56 Interventions: ED Discharge Assessment Last Done: 10/23/18 21:54 Instructions: DI for Pleurisy, DI for Shortness of Breath Activity Restrictions/Additional Instructions: *You have been diagnosed with [ acute on chronic dyspnea with pleurisy] *What to do: *Take medications as directed: your prescription has been sent to [facility] in [place] *Follow up with your primary care provider in 2-3 days, call for an appointment. Let them know you were seen in the Emergency Department and that we ask that you be seen in follow up *Return to ER if you should have any new, worsening or concerning symptoms Prescriptions: New ondansetron 4 mg tablet,disintegrating 4 mg PO TID-QID PRN (Reason: nausea and vomiting) Qty: 10 RF: 0 No Action norethin-e.estradiol triphasic [Alyacen (28)] 1 EACH tablet 1 ea PO DAILY Qty: 0 RF: 0 acetaminophen 325 MG tablet 650 mg PO PRN PRN (Reason: pain) Qty: 0 RF: 0 oxycodone-acetaminophen [Percocet] 5 MG/325 MG tablet PO Q4HP PRNQty: 20 RF: 0 tramadol 50 mg tablet 1 tab PO BID PRN (Reason: pain) RF: 0 hydroxyzine HCl 25 mg tablet 1 tab PO Q8H PRN (Reason: unknown) RF: 0 albuterol sulfate [Ventolin HFA] 90 mcg/actuation HFA aerosol inhaler 2 puff Inhalation Q4H PRN (Reason: Shortness Of Breath) RF: 0 propranolol 20 mg tablet 1 tab PO TID RF: 0
== END 2018-10-23 21:56 | disposition home or self-care (01) ==
PROVIDERS: Emergency Provider Emergency Medicine; PCP Obstetrics & Gynecology
DX: R06.00 Dyspnea, unspecified (principal); R09.1 Pleurisy
CPT/HCPCS: 71046; 80048; 85025; 85379; 99282; 99284

== ENCOUNTER 2020-09-01 20:47 | Emergency (ER) | payer OTHER, MEDICARE, MEDICAID, SELFPAY ==
--- NOTE | 2020-09-01 20:50 | ED_ITS ---
HPI - Ear Problem General Chief complaint: Ear Stated complaint: Ear pain Time Seen by Provider: 09/01/20 20:50 Source: patient and family Mode of arrival: Ambulatory Limitations: no limitations History of Present Illness HPI Narrative: 24F smoker with history of asthma presents with a low-grade fever and right ear pain with some dizziness, drainage of clearish fluid and decreased sense of hearing from her right ear. She has had minimal nasal congestion and some right-sided sore throat. She denies any chest pain or shortness of breath. She has had no nausea, vomiting or diarrhea. She has seen an register of deeds in the past as she has had some decreased hearing from this year previously, but no history of a relationship with your nose and throat. She denies any exposure to [place] Complaint: ear pain, ear discharge and decreased hearing Location: right ear Duration: constant Severity: moderate Relieving factors: nothing Exacerbating factors: position of head and palpation Context: recent illness Discharge from ear: yes - clear Associated symptoms ear: fever, decreased hearing, headache and rhinorrhea Treatment prior to arrival: none Related Data Home Medications Medication Instructions Recorded Confirmed norethin-e.estradiol triphasic 1 ea PO DAILY #0 12/08/17 07/20/18 [Alyacen (28)] acetaminophen 650 mg PO PRN PRN #0 12/15/17 07/20/18 albuterol sulfate [Ventolin HFA] 2 puff INHALATION Q4H PRN 07/20/18 07/20/18 hydroxyzine HCl 1 tab PO Q8H PRN 07/20/18 07/20/18 propranolol 1 tab PO TID 07/20/18 07/20/18 tramadol 1 tab PO BID PRN 07/20/18 07/20/18 Previous Rx's Medication Instructions Recorded oxycodone-acetaminophen [Percocet] 0 tab PO Q4HP PRN #20 tab 12/15/17 ondansetron 4 mg PO TID-QID PRN #10 tab 10/23/18 clindamycin HCl 300 mg PO TID 10 Days #30 cap 09/01/20 fluconazole 150 mg PO Q3D #2 tab 09/01/20 Allergies Allergy/AdvReac Type Severity Reaction Status Date / Time azithromycin [From Zithromax] Allergy Intermediate Rash Verified 07/20/18 11:02 amoxicillin [AMOXICILLIN] Allergy Unknown REACTION Verified 07/20/18 11:02 NOT LISTED Review of Systems Constitutional Constitutional: Denies chills, Denies fatigue, Reports fever(s), Denies frequent falls, Denies lethargy and Denies weakness Eyes Eyes: Denies change in vision, Denies eye discharge, Denies irritation and Denies loss of vision ENT Ears, Nose, Mouth, and Throat: Denies change in voice, Reports dizziness, Reports otalgia, Denies neck pain, Reports sore throat and Denies throat swelling Cardiovascular Cardiovascular: Denies chest pain, Denies irregular heart rhythm, Denies lightheadedness, Denies palpitations, Denies dyspnea, Denies dyspnea on exertion and Denies orthopnea Respiratory Respiratory: Denies cough, Denies dyspnea, Denies dyspnea on exertion and Denies wheezing Gastrointestinal Gastrointestinal: Denies abdominal pain, Denies change in bowel habits, Denies diarrhea, Denies nausea and Denies vomiting Musculoskeletal Musculoskeletal: Denies neck pain and Denies numbness Integumentary/Breasts Skin/Breast: Denies pruritus, Denies erythema, Denies rash and Denies wounds Neurologic Neurologic: Denies behavioral changes, Denies confusion, Reports dizziness, Denies frequent falls, Denies loss of vision, Denies numbness and Denies weakness Psychiatric Psychiatric: Denies anxiety, Denies behavioral changes, Denies confusion, Denies depression, Denies homicidal ideation and Denies suicidal ideation Endocrine Endocrine: Denies fatigue, Denies flushing and Denies palpitations Hematologic/Lymphatic Hematologic/Lymphatic: Denies easy bruising Allergic/Immunologic Allergic/Immunologic: Denies urticaria, Denies throat swelling and Denies wheezing Patient History Medical History Fibromyalgia POTS (postural orthostatic tachycardia syndrome) Surgical History H/O exploratory laparotomy Social History Smoking Status: Current some day smoker alcohol intake: current substance use type: marijuana Smoking Status: Current some day smoker alcohol intake frequency: 0-2 drinks per day Substance Use Type: marijuana Exam Narrative Exam Narrative: GEN: AOx3 and in mild distress EYES: Pupils are equal, round, and reactive to light and accommodation. Extraoccular muscles are intact bilaterally. There is no subconjunctival hemorrhage or exudate. ENT: Right tympanic membrane erythematous and retracted, some clear drainage in external auditory canal. No swelling or erythema of canal. Clear postnasal drip, no significant pharyngeal erythema or swelling. Mild right anterior cervical lymphadenopathy CHEST: Lungs are clear to auscultation bilaterally and free of wheezes, rales, or rhonchi. Heart rate is regular rhythm, there are no murmurs, clicks, rubs, or gallops. There is no chest wall tenderness. ABD: Abdomen is soft and nontender. There is no guarding or rebound. Bowel sounds are normal in all 4 quadrants. There is no mass or organomegaly. EXT: Full painless ROM of all extremities with no loss of sensation or strength. SKIN: Warm, pink, and dry. No erythema or rash Initial Vital Signs Initial Vital Signs: Vital Signs Temperature 98.3 F 09/01/20 20:52 Pulse Rate 81 09/01/20 20:52 Respiratory Rate 20 09/01/20 20:52 Blood Pressure 125/78 09/01/20 20:52 Pulse Oximetry 99 09/01/20 20:52 Course Orders Ordered: Discontinued Medications Clindamycin HCl (Clindamycin 150 Mg Capsule) 300 mg PO NOW ONE Stop: 09/01/20 20:56 Last Admin: 09/01/20 21:10 Dose: 300 mg Documented by: ALEC Vital Signs Vital signs: Vital Signs - 8 hr 09/01/20 20:52 Temperature 98.3 F Pulse Rate 81 Respiratory Rate 20 Blood Pressure 125/78 Pulse Oximetry 99 Medical Decision Making [facility] Narrative Medical decision making narrative: Patient has r evidence of purulence right otitis media with evidence of likely TM rupture. She will require oral antibiotics but has had significant allergy to both penicillin and a Zithromax. Furthermore, she states her mother had a significant allergy to Keflex. For this reason I discussed with her the use of clindamycin which does have the potential a some increased GI side effects and would not cover H. influenzae or M. catarhallis. She's been given return precautions and encouraged to contact ENT for follow up. Questions have been answered to her apparent satisfaction. Discharge Plan Departure Patient Disposition: Home Clinical Impression: Otitis media Qualifiers: Otitis media type: suppurative Chronicity: acute Laterality: right Recurrence: non-recurrent Spontaneous tympanic membrane rupture: with spontaneous rupture Qualified Code(s): H66.011 - Acute suppurative otitis media with spontaneous rupture of ear drum, right ear Instructions: Middle Ear Infection Activity Restrictions/Additional Instructions: *You have been diagnosed with [right-sided otitis media with a likely tympanic membrane rupture] *What to do: *Take medications as directed: Prescription sent to [facility] in [place] *Follow up with your primary care provider in 2-3 days, call for an appointment. Let them know you were seen in the Emergency Department and that we ask that you be seen in follow up. Also, as we discussed, I have given you contact information for the local ear nose and throat doctor for follow-up *Return to ER if you should have any new, worsening or concerning symptoms Prescriptions: New clindamycin HCl 300 mg capsule 300 mg PO TID 10 Days Qty: 30 RF: 0 fluconazole 150 mg tablet 150 mg PO Q3D Qty: 2 RF: 0 No Action norethin-e.estradiol triphasic [Alyacen (28)] 1 EACH tablet 1 ea PO DAILY Qty: 0 RF: 0 acetaminophen 325 MG tablet 650 mg PO PRN PRN (Reason: pain) Qty: 0 RF: 0 oxycodone-acetaminophen [Percocet] 5 MG/325 MG tablet 0 tab PO Q4HP PRNQty: 20 RF: 0 tramadol 50 mg tablet 1 tab PO BID PRN (Reason: pain) RF: 0 hydroxyzine HCl 25 mg tablet 1 tab PO Q8H PRN (Reason: unknown) RF: 0 albuterol sulfate [Ventolin HFA] 90 mcg/actuation HFA aerosol inhaler 2 puff Inhalation Q4H PRN (Reason: Shortness Of Breath) RF: 0 propranolol 20 mg tablet 1 tab PO TID RF: 0 ondansetron 4 mg tablet,disintegrating 4 mg PO TID-QID PRN (Reason: nausea and vomiting) Qty: 10 RF: 0 Referrals: Lamar Meyer MD [Primary Care Provider] - Chinedu David MD [Physician] -
[2020-09-01 20:52] VITALS: BP 125/78; PULSE 81; RESP 20; TEMP 36.8; O2SAT 99
[2020-09-01] MEDS: CLINDAMYCIN 150 MG CAPSULE 300 MG PO (21:10)
== END 2020-09-01 21:16 | disposition home or self-care (01) ==
LOC: ED 21:11
PROVIDERS: Emergency Provider Emergency Medicine; PCP Obstetrics & Gynecology
DX: H66.011 Acute suppurative otitis media with spontaneous rupture of ear drum, right ear (principal); R50.9 Fever, unspecified; R42 Dizziness and giddiness; J02.9 Acute pharyngitis, unspecified; I49.8 Other specified cardiac arrhythmias
CPT/HCPCS: 99281; 99283

== ENCOUNTER 2020-09-25 22:21 | Emergency (ER) | payer OTHER, MEDICARE, MEDICAID, SELFPAY ==
[2020-09-25 22:27] VITALS: BP 114/70; PULSE 79; RESP 19; TEMP 37.2; O2SAT 100; BMI 43.9
--- NOTE | 2020-09-25 22:33 | DI.RAD.S_ITS ---
PROCEDURE: XR CHEST 1V INDICATIONS: chest pain TECHNIQUE: One view of the chest was acquired. COMPARISON: [facility], CR, XR CHEST 2V, 10/23/2018, 21:17. FINDINGS: Surgical changes and devices: None. Lungs and pleura: Lungs are clear. No pleural effusions or pneumothorax. Mediastinum: Mediastinal contours appear normal. Heart size is normal. Bones and chest wall: No suspicious bony lesions. Overlying soft tissues appear unremarkable. IMPRESSION: No acute cardiopulmonary pathology. Dictated by: Gary Carrasquillo M.D. on 09/26/2020 at 8:06 Approved by: Gary Carrasquillo M.D. on 09/26/2020 at 8:07
[2020-09-25 22:50] VITALS: BP 110/58
[2020-09-25 22:51] VITALS: PULSE 84; RESP 18; O2SAT 100
[2020-09-25 23:00] VITALS: BP 114/62; PULSE 79; O2SAT 99
[2020-09-25 23:01] LABS: Add Manual Diff / Slide Review NO; Basophils Absolute Auto 0 /uL (0-100); Basophils Percent Auto 0.5 % (0-2); Eosinophils Absolute Auto 200 /uL (0-450); Eosinophils Percent Auto 2.4 % (2-4); Hematocrit 38.7 % (36-46); Hemoglobin 12.9 g/dL (12.0-16.0); Lymphocytes Absolute Auto 3600 /uL (1100-4500); Lymphocytes Percent Auto 37.2 % (25-40); Mean Corpuscular HGB Conc 33.3 % (30-36); Mean Corpuscular Hemoglobin 30.8 PG (26-34); Mean Corpuscular Volume 92.5 fL (80-100); Monocytes Absolute Auto 600 /uL (0-900); Monocytes Percent Auto 5.9 % (3-14); Neutrophils Absolute Auto 5300 /uL (1500-7000); Platelet Count 239 X10^3/uL (150-400); Red Blood Cell Count 4.18 X10^6/uL (4.0-5.2); Red Cell Distribution Width 12.5 % (11.6-14.8); White Blood Cell Count 9.8 X10^3/uL (4.5-11.0)
[2020-09-25 23:02] LABS: INR 0.9 (0.9-1.3); Prothrombin Time 10.5 SECONDS (10.1-12.7)
[2020-09-25 23:05] LABS: PTT Partial Thromboplastin Tim 27 SECONDS (26.4-36.2)
[2020-09-25 23:30] VITALS: BP 112/73; PULSE 77; RESP 22; O2SAT 99
--- NOTE | 2020-09-25 23:38 | ED_ITS ---
HPI - Chest Pain General Chief Complaint: Chest Pain Stated Complaint: dizzyness, heart beating fast,sharp pain in back Time Seen by Provider: 09/25/20 22:47 Source: patient Mode of arrival: Ambulatory Limitations: no limitations History of Present Illness HPI narrative: 24-year-old female. History of POTS syndrome. Also has had a history of vertigo. Does have meclizine at home. States that she had an episode this evening where she was walking up some stairs. She did become somewhat dizzy. Had some dizziness and felt like that her heart was beating past. States she sat down which normally helps her symptoms however he did not improve this time. Related Data Home Medications Medication Instructions Recorded Confirmed norethin-e.estradiol triphasic 1 ea PO DAILY #0 12/08/17 07/20/18 [Alyacen (28)] acetaminophen 650 mg PO PRN PRN #0 12/15/17 07/20/18 albuterol sulfate [Ventolin HFA] 2 puff INHALATION Q4H PRN 07/20/18 07/20/18 hydroxyzine HCl 1 tab PO Q8H PRN 07/20/18 07/20/18 propranolol 1 tab PO TID 07/20/18 07/20/18 tramadol 1 tab PO BID PRN 07/20/18 07/20/18 Previous Rx's Medication Instructions Recorded oxycodone-acetaminophen [Percocet] 0 tab PO Q4HP PRN #20 tab 12/15/17 ondansetron 4 mg PO TID-QID PRN #10 tab 10/23/18 fluconazole 150 mg PO Q3D #2 tab 09/01/20 Allergies Allergy/AdvReac Type Severity Reaction Status Date / Time azithromycin [From Zithromax] Allergy Intermediate Rash Verified 07/20/18 11:02 amoxicillin [AMOXICILLIN] Allergy Unknown REACTION Verified 07/20/18 11:02 NOT LISTED Penicillins Allergy Verified 09/25/20 22:35 Review of Systems Constitutional Constitutional: Denies fever(s) and Denies headache(s) ENT Ears, Nose, Mouth, and Throat: Denies headache(s) Cardiovascular Cardiovascular: Denies chest pain, Reports rapid heart rate, Reports lightheadedness and Denies dyspnea Respiratory Respiratory: Denies dyspnea Gastrointestinal Gastrointestinal: Denies abdominal pain and Reports nausea Musculoskeletal Musculoskeletal: Reports back pain Integumentary/Breasts Skin/Breast: Denies lesions and Denies rash Neurologic Neurologic: Denies behavioral changes and Denies headache(s) Psychiatric Psychiatric: Denies behavioral changes Hematologic/Lymphatic Hematologic/Lymphatic: Denies easy bleeding and Denies easy bruising Patient History Medical History Fibromyalgia POTS (postural orthostatic tachycardia syndrome) Surgical History H/O exploratory laparotomy Social History Smoking Status: Never smoker alcohol intake: current substance use type: marijuana Smoking Status: Never smoker alcohol intake frequency: a few times a week Substance Use Type: marijuana Exam Initial Vital Signs Initial Vital Signs: Vital Signs Temperature 99.0 F 09/25/20 22:27 Pulse Rate 79 09/25/20 22:27 Respiratory Rate 19 09/25/20 22:27 Blood Pressure 114/70 09/25/20 22:27 Pulse Oximetry 100 09/25/20 22:27 Const General: cooperative and comfortable Limitations: mental status not altered HENMT Head: normal to inspection and normocephalic Resp Effort & Inspection: normal respiratory effort Cardio Rate: regular rate Skin Lesions: no lesions Rashes: no rashes Neuro General: patient alert, patient awake and patient oriented x3 Cognition: normal cognition Speech: speech normal Extrem General: normal to inspection Psych Appearance: grossly normal and well kempt Course Orders Ordered: ED Orders 09/25/20 22:33 XR chest 1V Stat EKG-12 Lead Stat 09/25/20 22:47 Complete Blood Count AUTO DIFF Stat Partial Thromboplastin Time Stat Prothrombin Time INR Stat Vital Signs Vital signs: Vital Signs - 8 hr 09/25/20 22:27 09/25/20 22:50 09/25/20 22:51 Temperature 99.0 F Pulse Rate 79 84 Respiratory Rate 19 18 Blood Pressure 114/70 110/58 L Pulse Oximetry 100 100 09/25/20 23:00 09/25/20 23:30 Temperature Pulse Rate 79 77 Respiratory Rate 22 Blood Pressure 114/62 112/73 Pulse Oximetry 99 99 MDM - Chest Pain Medical Records Data Attestation: I reviewed the patient's medical records. Lab Data Attestation: I reviewed the patient's lab results. Result diagrams: 09/25/20 22:47 09/25/20 22:47 Labs: Lab Results 09/25/20 09/25/20 09/25/20 Range/Units 22:47 22:47 22:47 WBC 9.8 (4.5-11.0) X10^3/uL RBC 4.18 (4.0-5.2) X10^6/uL Hgb 12.9 (12.0-16.0) g/dL Hct 38.7 (36-46) % MCV 92.5 (80-100) fL MCH 30.8 (26-34) PG MCHC 33.3 (30-36) % RDW 12.5 (11.6-14.8) % Plt Count 239 (150-400) X10^3/uL Neut % (Auto) 54.0 (50-75) % Lymph % (Auto) 37.2 (25-40) % [place] % (Auto) 5.9 (3-14) % Eos % (Auto) 2.4 (2-4) % Baso % (Auto) 0.5 (0-2) % Neut # (Auto) 5300 (2833-3114) /uL Lymph # (Auto) 3600 (7409-8737) /uL [place] # (Auto) 600 (0-900) /uL Eos # (Auto) 200 (0-450) /uL Baso # (Auto) 0 (0-100) /uL PT 10.5 (10.1-12.7) SECONDS INR 0.9 (0.9-1.3) APTT 27 D (26.4-36.2) SECONDS Sodium Cancelled Potassium Cancelled Chloride Cancelled Carbon Dioxide Cancelled BUN Cancelled Creatinine Cancelled Estimated GFR Cancelled BUN/Creatinine Ratio Cancelled Glucose Cancelled Calcium Cancelled Total Bilirubin Cancelled AST Cancelled ALT Cancelled Alkaline Phosphatase Cancelled Total Creatine Kinase Cancelled CK-MB (CK-2) Cancelled CK-MB (CK-2) Rel Index Cancelled Troponin I Cancelled Total Protein Cancelled Albumin Cancelled Globulin Cancelled Albumin/Globulin Ratio Cancelled Lipase Cancelled Imaging Data Chest x-ray: Radiologist's Impression: No acute abnormalities ECG Data Attestation: I personally reviewed and interpreted this ECG as follows: Prior ECG tracings: not available for review Interpretation: Sinus rhythm Ventricular rate is 72 Normal axis Normal QRS Normal QTC No ST T wave changes MDM Narrative Medical decision making narrative: EKG and chest x-ray unremarkable. Discussed the patient she should talk with her primary doctor about a Holter monitor. Also discussed that she should follow up with ENT with regard to her vertigo episodes. She will continue to take the meclizine as needed. Feel no further workup needed here in the emergency department. She expressed understanding and agreement. Discharge Plan Departure Patient Disposition: Home Clinical Impression: Dizziness, Heart palpitations Instructions: DI for Vertigo Activity Restrictions/Additional Instructions: Your labs and EKG today were very reassuring. Recommend that you continue all of your medications as directed. I do recommend that you talk with your ENT provider about your vertigo as they may be able to help further with evaluation and treatment. Return to the emergency department for any new or worsening symptoms Prescriptions: No Action norethin-e.estradiol triphasic [Alyacen (28)] 1 EACH tablet 1 ea PO DAILY Qty: 0 RF: 0 acetaminophen 325 MG tablet 650 mg PO PRN PRN (Reason: pain) Qty: 0 RF: 0 oxycodone-acetaminophen [Percocet] 5 MG/325 MG tablet 0 tab PO Q4HP PRNQty: 20 RF: 0 tramadol 50 mg tablet 1 tab PO BID PRN (Reason: pain) RF: 0 hydroxyzine HCl 25 mg tablet 1 tab PO Q8H PRN (Reason: unknown) RF: 0 albuterol sulfate [Ventolin HFA] 90 mcg/actuation HFA aerosol inhaler 2 puff Inhalation Q4H PRN (Reason: Shortness Of Breath) RF: 0 propranolol 20 mg tablet 1 tab PO TID RF: 0 ondansetron 4 mg tablet,disintegrating 4 mg PO TID-QID PRN (Reason: nausea and vomiting) Qty: 10 RF: 0 fluconazole 150 mg tablet 150 mg PO Q3D Qty: 2 RF: 0 Referrals: Lamar Meyer MD [Primary Care Provider] -
== END 2020-09-25 23:47 | disposition home or self-care (01) ==
PROVIDERS: Emergency Provider Emergency Medicine; PCP Obstetrics & Gynecology
DX: R42 Dizziness and giddiness (principal); R00.2 Palpitations; R07.9 Chest pain, unspecified; I49.8 Other specified cardiac arrhythmias
CPT/HCPCS: 36415; 71045; 80053; 82550; 82553; 83690; 84484; 85025; 85610; 85730; 93005; 99284

== ENCOUNTER 2021-02-15 16:33 | Emergency (ER) | payer OTHER, MEDICARE, MEDICAID, SELFPAY ==
[2021-02-15] VITALS (7 sets, daily range): BP systolic 118–136; BP diastolic 70–84; PULSE 59–76; RESP 15–18; TEMP 36.7; O2SAT 96–100; BMI 45.7
[2021-02-15 17:40] LABS: Add Manual Diff / Slide Review NO; Basophils Absolute Auto 100 /uL (0-100); Basophils Percent Auto 0.6 % (0-2); Eosinophils Absolute Auto 100 /uL (0-450); Eosinophils Percent Auto 1.5 % (2-4); Hematocrit 40.1 % (36-46); Hemoglobin 13.5 g/dL (12.0-16.0); Lymphocytes Absolute Auto 2500 /uL (1100-4500); Lymphocytes Percent Auto 25.3 % (25-40); Mean Corpuscular HGB Conc 33.7 % (30-36); Mean Corpuscular Hemoglobin 30.7 PG (26-34); Monocytes Absolute Auto 500 /uL (0-900); Monocytes Percent Auto 4.7 % (3-14); Neutrophils Absolute Auto 6800 /uL (1500-7000); Neutrophils Percent Auto 67.9 % (50-75); Platelet Count 222 X10^3/uL (150-400); Red Blood Cell Count 4.41 X10^6/uL (4.0-5.2); Red Cell Distribution Width 12.6 % (11.6-14.8)
[2021-02-15 17:48] LABS: Prothrombin Time 11.6 SECONDS (10.1-12.7)
[2021-02-15 17:50] LABS: PTT Partial Thromboplastin Tim 31 SECONDS (26.4-36.2)
[2021-02-15 18:05] LABS: Alanine Aminotransferase 16 IU/L (<35); Albumin 4.1 g/dL (3.5-5.0); Albumin Globulin Ratio 1.4 (1.0-2.8); Alkaline Phosphatase 60 U/L (38-126); Aspartate Aminotransferase 21 IU/L (14-36); BUN Creatinine Ratio 13.5 (6-22); Bilirubin Total 0.4 mg/dL (0.2-1.3); Blood Urea Nitrogen 10 mg/dL (7-17); Calcium 9.5 mg/dL (8.4-10.2); Carbon Dioxide 25 mmol/L (22-32); Chloride 106 mmol/L (98-107); Estimated Glomerular Filt Rate > 60.0 mL/min (>60); Globulin 2.9 g/dL (1.7-4.1); Glucose 92 mg/dL (70-100); HEMOLYSIS < 15 (0-50); Lipase 42 U/L (23-300); Potassium 4.1 mmol/L (3.4-5.1); Sodium 138 mmol/L (137-145)
--- NOTE | 2021-02-15 18:13 | ED_ITS ---
HPI - Abdominal Pain General Chief Complaint: Abdominal Pain Stated Complaint: Severe right Abd pain x3 days Time Seen by Provider: 02/15/21 17:39 Source: patient Mode of arrival: Ambulatory History of Present Illness HPI narrative: 5-year-old woman presents with 3 days of increasing right upper quadrant and right posterior rib pain. She describes it as severe persistent and getting worse over the last 3 days. She has been using ibuprofen and rest but not having much relief from pain. She has been able to eat much because it is hurting so much. She states that she has had increased gas, she had a loose bowel movement yesterday. She describes some chills but no fevers or cough. She has been nauseated but no actual vomiting. She also notes that 5 days ago she had a fall landing on her left side she has a bruise on her left forearm from this. All of the pain associated currently started 48 hours after that fall is all right-sided. In March 2019 she did have her gallbladder taken out and describes this pain is different from that. Related Data Home Medications Medication Instructions Recorded Confirmed norethin-e.estradiol triphasic 1 ea PO DAILY #0 12/08/17 07/20/18 [Alyacen (28)] acetaminophen 650 mg PO PRN PRN #0 12/15/17 07/20/18 albuterol sulfate [Ventolin HFA] 2 puff INHALATION Q4H PRN 07/20/18 07/20/18 hydroxyzine HCl 1 tab PO Q8H PRN 07/20/18 07/20/18 propranolol 1 tab PO TID 07/20/18 07/20/18 tramadol 1 tab PO BID PRN 07/20/18 07/20/18 Previous Rx's Medication Instructions Recorded oxycodone-acetaminophen [Percocet] 0 tab PO Q4HP PRN #20 tab 12/15/17 ondansetron 4 mg PO TID-QID PRN #10 tab 10/23/18 fluconazole 150 mg PO Q3D #2 tab 09/01/20 Allergies Allergy/AdvReac Type Severity Reaction Status Date / Time azithromycin [From Zithromax] Allergy Intermediate Rash Verified 02/15/21 16:46 amoxicillin [AMOXICILLIN] Allergy Unknown REACTION Verified 02/15/21 16:46 NOT LISTED Penicillins Allergy Verified 02/15/21 16:46 Review of Systems Review of Systems Narrative: Remainder of complete review of systems is otherwise unremarkable e xcept for that included in the HPI. Patient History Medical History Fibromyalgia POTS (postural orthostatic tachycardia syndrome) Surgical History H/O exploratory laparotomy History of cholecystectomy Social History Smoking Status: Never smoker alcohol intake: current substance use type: marijuana Smoking Status: Never smoker alcohol intake frequency: a few times a week Substance Use Type: marijuana Exam Narrative Exam Narrative: General: Obese, Healthy appearing, in mild pain.. Able to give a complete and coherent history. HEENT: Moist mucous membranes, normal sclera with reactive pupils, Respiratory: Lungs are clear to auscultation, no wheezing no rales no rhonchi. Full and symmetrical air movement Cardiac: Regular rate and rhythm no murmurs no bruits Abdomen: Soft, tender in the right upper quadrant radiating to the mid axillary and right posterior lower lung cr., good bowel tones, no flank pain Skin: Warm and dry, no rashes, no skin changes around the area of pain Neurologic: Grossly neurologically intact with no obvious asymmetries or abnormalities Extremities: No trauma, well perfused Psych: Cooperative, appropriate insight and affect Initial Vital Signs Initial Vital Signs: Vital Signs Temperature 98.0 F 02/15/21 16:43 Pulse Rate 76 02/15/21 16:43 Respiratory Rate 16 02/15/21 16:43 Blood Pressure 126/80 02/15/21 16:43 Pulse Oximetry 99 02/15/21 16:43 Course Orders Ordered: ED Orders 02/15/21 16:47 EKG-12 Lead Stat 02/15/21 17:27 Complete Blood Count AUTO DIFF Stat Comprehensive Metabolic Panel Stat Lipase Stat Partial Thromboplastin Time Stat Prothrombin Time INR Stat 02/15/21 19:08 CT abdomen pelvis w con Stat Hydromorphone HCl (Hydromorphone 0.5 Mg Inj) 0.5 mg IV Q15MIN PRN PRN Reason: Pain, Last Admin: 02/15/21 19:28 Dose: 0.5 mg Documented by: JOHN Discontinued Medications Sodium Chloride (Normal Saline 0.9%) 1,000 mls @ 1,000 mls/hr IV BOLUS ONE Stop: 02/15/21 20:06 Last Admin: 02/15/21 19:27 Dose: 1,000 mls/hr Documented by: JOHN Ondansetron HCl (Ondansetron 4 Mg/2 Ml Inj) 4 mg IV NOW ONE Stop: 02/15/21 19:08 Last Admin: 02/15/21 19:28 Dose: 4 mg Documented by: JOHN Vital Signs Vital signs: Vital Signs - 8 hr 02/15/21 16:43 02/15/21 19:30 02/15/21 19:55 Temperature 98.0 F Pulse Rate 76 67 65 Respiratory Rate 16 18 16 Blood Pressure 126/80 128/84 119/73 Pulse Oximetry 99 97 98 MDM - Abdominal Pain Medical Records Attestation: I reviewed the patient's medical records. Lab Data Attestation: I reviewed the patient's lab results. Result diagrams: 02/15/21 17:27 02/15/21 17:27 Labs: Lab Results 02/15/21 02/15/21 02/15/21 Range/Units 17:27 17:27 17:27 WBC 10.0 (4.5-11.0) X10^3/uL RBC 4.41 (4.0-5.2) X10^6/uL Hgb 13.5 (12.0-16.0) g/dL Hct 40.1 (36-46) % MCV 91.0 (80-100) fL MCH 30.7 (26-34) PG MCHC 33.7 (30-36) % RDW 12.6 (11.6-14.8) % Plt Count 222 (150-400) X10^3/uL Neut % (Auto) 67.9 (50-75) % Lymph % (Auto) 25.3 (25-40) % [place] % (Auto) 4.7 (3-14) % Eos % (Auto) 1.5 L (2-4) % Baso % (Auto) 0.6 (0-2) % Neut # (Auto) 6800 (2958-7573) /uL Lymph # (Auto) 2500 (6942-6288) /uL [place] # (Auto) 500 (0-900) /uL Eos # (Auto) 100 (0-450) /uL Baso # (Auto) 100 (0-100) /uL PT 11.6 (10.1-12.7) SECONDS INR 1.0 (0.9-1.3) APTT 31 (26.4-36.2) SECONDS Sodium 138 (137-145) mmol/L Potassium 4.1 (3.4-5.1) mmol/L Chloride 106 (98-107) mmol/L Carbon Dioxide 25 (22-32) mmol/L BUN 10 (7-17) mg/dL Creatinine 0.74 (0.52-1.04) mg/dL Estimated GFR > 60.0 (>60) mL/min BUN/Creatinine Ratio 13.5 (6-22) Glucose 92 (70-100) mg/dL Calcium 9.5 (8.4-10.2) mg/dL Total Bilirubin 0.4 (0.2-1.3) mg/dL AST 21 (14-36) IU/L ALT 16 (<35) IU/L Alkaline Phosphatase 60 (38-126) U/L Total Protein 7.0 (6.3-8.2) g/dL Albumin 4.1 (3.5-5.0) g/dL Globulin 2.9 (1.7-4.1) g/dL Albumin/Globulin Ratio 1.4 (1.0-2.8) Lipase 42 (23-300) U/L Point of care testing: Point of Care Testing Test Results Negative Urine Dip Bedside Urine Glucose Negative Bedside Urine Bilirubin - Negative Bedside Urine Ketone - Negative Urine Specific [place] 1.030 Bedside Urine Occult Blood - Negative Bedside Urine pH 6.0 Bedside Urine Protein - Negative Bedside Urine Urobilinogen - Negative Bedside Urine Nitrite - Negative Imaging Data CT scan - abdomen/pelvis: Radiologist's Impression: FINDINGS: Image quality: Excellent. ABDOMEN: Lung bases: Lung bases are clear. Heart size is normal. Solid organs: Liver is normal in size and enhancement. Gallbladder is absent Biliary system is non dilated. Pancreas enhances normally. Spleen is normal in size and enhancement. No adrenal nodules. Kidneys demonstrate normal size and enhancement, without hydronephrosis. Peritoneum and bowel: Bowel loops demonstrate normal wall thickness and caliber. No free fluid or air. The appendix is normal. Nodes and vessels: No retroperitoneal or mesenteric adenopathy by size criteria. Aorta and inferior vena cava are normal in size. Miscellaneous: No ventral hernias. PELVIS: Genitourinary: Bladder wall thickness is normal. Miscellaneous: No inguinal hernias or adenopathy. Bones: No suspicious bony lesions. No vertebral body compression fractures. Spine degenerative disc disease and facet arthropathy. IMPRESSION: 1. No acute disease process. 2. No free fluid or free air. 3. No dilated loops of bowel. 4. Status post cholecystectomy. 5. No rib fracture. Dictated by: Reyna Denise MD, PhD on 02/15/2021 at 19:50 MDM Narrative Medical decision making narrative: 25-year-old woman 3 days of increasing abdominal pain right upper quadrant to right posterior flank area. Exam is relatively benign without rebound or guarding. Workup has normal labs no evidence of infection normal kidney function as well as liver function. CT scan is unremarkable with no evidence of free fluid or air, no dilated bowel loops, no kidney or liver obvious abnormalities no appendicitis no diverticulitis. On looking at the scan itself she does have a moderate stool load throughout her colon. Reviewed all of these findings with her and suggested that she try a bottle of magnesium citrate when she gets home this evening to see if cleaning out her colon completely alleviates her symptoms. I did suggest that if she has worsening fevers, pain or new symptoms she should return for further evaluation. Discharge Plan Departure Patient Disposition: Home Clinical Impression: Abdominal pain Qualifiers: Abdominal location: right upper quadrant Qualified Code(s): R10.11 - Right upper quadrant pain Constipation Qualifiers: Constipation type: unspecified constipation type Qualified Code(s): K59.00 - Constipation, unspecified Instructions: DI for Abdominal Pain-Adult, DI for Constipation Activity Restrictions/Additional Instructions: Thank you for coming in today Your workup including blood work and CT scan of your abdomen does not show any life-threatening diagnosis. There is no reason for hospitalization or surgical consult today. The single abnormality that was appreciated was quite a bit of stool throughout your colon. I am going to suggest that you drink the bottle of magnesium citrate when you get home this evening to clean your entire colon out. Do expect quite a bit of stool not just a small amount of loose stool. If you are still having increasing pain after you have had a very large bowel movement (or two) or your having fevers or developing new symptoms, please feel free to return to the ER for additional evaluation Prescriptions: No Action norethin-e.estradiol triphasic [Alyacen (28)] 1 EACH tablet 1 ea PO DAILY Qty: 0 RF: 0 acetaminophen 325 MG tablet 650 mg PO PRN PRN (Reason: pain) Qty: 0 RF: 0 oxycodone-acetaminophen [Percocet] 5 MG/325 MG tablet 0 tab PO Q4HP PRNQty: 20 RF: 0 tramadol 50 mg tablet 1 tab PO BID PRN (Reason: pain) RF: 0 hydroxyzine HCl 25 mg tablet 1 tab PO Q8H PRN (Reason: unknown) RF: 0 albuterol sulfate [Ventolin HFA] 90 mcg/actuation HFA aerosol inhaler 2 puff Inhalation Q4H PRN (Reason: Shortness Of Breath) RF: 0 propranolol 20 mg tablet 1 tab PO TID RF: 0 ondansetron 4 mg tablet,disintegrating 4 mg PO TID-QID PRN (Reason: nausea and vomiting) Qty: 10 RF: 0 fluconazole 150 mg tablet 150 mg PO Q3D Qty: 2 RF: 0 Referrals: Елена Rodriguez PA-C [Primary Care Provider] -
--- NOTE | 2021-02-15 19:08 | DI.CT.S_ITS ---
PROCEDURE: CT ABDOMEN PELVIS W CON INDICATIONS: Right Upper quadrent/post lower rib pain x 3 days TECHNIQUE: After the administration of intravenous contrast, 5 mm thick sections acquired from the diaphragm to the symphysis. 5 mm coronal and sagittal reformats were acquired. For radiation dose reduction, the following was used: automated exposure control, adjustment of mA and/or kV according to patient size. COMPARISON: None. FINDINGS: Image quality: Excellent. ABDOMEN: Lung bases: Lung bases are clear. Heart size is normal. Solid organs: Liver is normal in size and enhancement. Gallbladder is absent Biliary system is non dilated. Pancreas enhances normally. Spleen is normal in size and enhancement. No adrenal nodules. Kidneys demonstrate normal size and enhancement, without hydronephrosis. Peritoneum and bowel: Bowel loops demonstrate normal wall thickness and caliber. No free fluid or air. The appendix is normal. Nodes and vessels: No retroperitoneal or mesenteric adenopathy by size criteria. Aorta and inferior vena cava are normal in size. Miscellaneous: No ventral hernias. PELVIS: Genitourinary: Bladder wall thickness is normal. Miscellaneous: No inguinal hernias or adenopathy. Bones: No suspicious bony lesions. No vertebral body compression fractures. Spine degenerative disc disease and facet arthropathy. IMPRESSION: 1. No acute disease process. 2. No free fluid or free air. 3. No dilated loops of bowel. 4. Status post cholecystectomy. 5. No rib fracture. Dictated by: Reyna Denise MD, PhD on 02/15/2021 at 19:50 Approved by: Reyna Denise MD, PhD on 02/15/2021 at 19:53
[2021-02-15] MEDS: SODIUM CHLORIDE 0.9% 1,000 ML 1000 ML IV (19:27)
[2021-02-15] MEDS: ONDANSETRON 4 MG/2 ML INJ IV (19:28)
[2021-02-15] MEDS: HYDROMORPHONE 0.5 MG INJ IV (19:28)
[2021-02-15] MEDS: MAGNESIUM CITRATE 300 ML SOLUTION PO (20:21)
== END 2021-02-15 21:13 | disposition home or self-care (01) ==
PROVIDERS: Emergency Medicine; Emergency Provider Emergency Medicine; PCP Physician Assistant
DX: R10.11 Right upper quadrant pain (principal); K59.00 Constipation, unspecified
CPT/HCPCS: 36415; 74177; 80053; 81003; 81025; 83690; 85025; 85610; 85730; 93005; 96361; 96374; 96375; 99284; J1170; J2405

== ENCOUNTER 2023-03-07 17:54 | Emergency (ER) | payer OTHER, MEDICARE, MEDICAID, SELFPAY ==
[2023-03-07] VITALS (12 sets, daily range): BP systolic 100–144; BP diastolic 66–94; PULSE 54–104; RESP 10–23; TEMP 36.9; O2SAT 97–100; BMI 45.7
--- NOTE | 2023-03-07 18:28 | ED.GENADULT ---
HPI - General Adult General Chief complaint: Allergic Reaction Stated complaint: stung, allergic, used epi, feels faint/ BP low Time Seen by Provider: 03/07/23 18:07 Source: patient and EMS Mode of arrival: EMS Limitations: no limitations History of Present Illness HPI narrative: Patient is a 27-year-old female. Has a known anaphylactic reaction to bee stings. She states that she was stung on her right arm. She immediately gave herself a shot of her epi. She did not have any respiratory distress. No vomiting. After giving herself the epinephrine she started to feel somewhat faint. No chest pain. No coughing. No vomiting. She did arrive by EMS. No rash. Related Data Home Medications Medication Instructions Recorded Confirmed norethindrone-e.estradiol 1 ea PO DAILY ##0 12/08/17 07/20/18 triphasic 0.5 mg/0.75 mg/1 mg-35 mcg tablet (Alyacen (28)) acetaminophen 325 mg tablet 650 mg PO PRN PRN pain ##0 12/15/17 07/20/18 albuterol sulfate 90 mcg/actuation 2 puff inhalation Q4H PRN 07/20/18 07/20/18 aerosol inhaler Shortness Of Breath hydroxyzine HCl 25 mg tablet 1 tab PO Q8H PRN unknown 07/20/18 07/20/18 propranolol 20 mg tablet 1 tab PO TID 07/20/18 07/20/18 tramadol 50 mg tablet 1 tab PO BID PRN pain 07/20/18 07/20/18 Previous Rx's Medication Instructions Recorded oxycodone-acetaminophen 5 mg-325 0 tab PO Q4HP PRN #20 tabs 12/15/17 mg tablet (Percocet) ondansetron 4 mg disintegrating 4 mg PO TID-QID PRN nausea and 10/23/18 tablet vomiting #10 tabs fluconazole 150 mg tablet 150 mg PO Q3D 2 doses #2 tabs 09/01/20 Allergies Allergy/AdvReac Type Severity Reaction Status Date / Time azithromycin [From Zithromax] Allergy Intermediate Rash Verified 03/07/23 18:32 amoxicillin [AMOXICILLIN] Allergy Unknown REACTION Verified 03/07/23 18:32 NOT LISTED Penicillins Allergy Verified 03/07/23 18:32 Review of Systems Review of Systems ROS Unobtainable: All systems reviewed & are unremarkable except as noted in HPI and below Patient History Medical History Fibromyalgia POTS (postural orthostatic tachycardia syndrome) Surgical History H/O exploratory laparotomy History of cholecystectomy Social History Smoking Status: Never smoker alcohol intake: current substance use type: marijuana Smoking Status: Never smoker alcohol intake frequency: a few times a week Substance Use Type: marijuana Exam Initial Vital Signs Initial Vital Signs: Vital Signs Pulse Rate 64 03/07/23 18:24 Pulse Oximetry 98 03/07/23 18:24 Const General: cooperative, comfortable and No ill appearing HENMT Head: normal to inspection Resp Effort & Inspection: normal respiratory effort Auscultation: clear to auscultation bilaterally Cardio Rate: regular rate Rhythm: regular rhythm Skin Other: No rashes. Does have what appears to be the insect sting site on the right distal forearm. No surrounding erythema. Neuro General: patient alert, patient awake and moves all extremities Extrem General: normal to inspection and capillary refill normal Psych Appearance: grossly normal and well kempt Course Orders Ordered: Discontinued Medications Sodium Chloride (Normal Saline 0.9%) 1,000 mls @ 1,000 mls/hr IV BOLUS ONE Stop: 03/07/23 19:15 Last Infusion: 03/07/23 20:14 Dose: 0 mls/hr Documented By: Admin: 03/07/23 18:40 Dose: 1,000 mls/hr Documented By: ALFRED Ibuprofen (Ibuprofen 400 Mg Tablet) 800 mg PO NOW ONE Stop: 03/07/23 19:40 Last Admin: 03/07/23 19:44 Dose: 800 mg Documented By: JOCELYNE Vital Signs Vital signs: Vital Signs - 8 hr 03/07/23 21:59 03/07/23 20:30 03/07/23 20:30 Pulse Rate 90 Respiratory Rate 10 L Blood Pressure 103/66 127/69 Pulse Oximetry 98 Oxygen Delivery Method 03/07/23 21:00 03/07/23 21:30 Pulse Rate 104 H 92 H Respiratory Rate 16 17 Blood Pressure Pulse Oximetry 97 97 Oxygen Delivery Method Room Air Medical Decision Making ECG Data Attestation: I personally reviewed and interpreted this ECG as follows: Prior ECG tracings: not available for review Interpretation: Sinus bradycardia Ventricular rate of 56 Normal axis Sinus arrhythmia Normal QTC No ST T wave changes MDM Narrative Medical decision making narrative: Patient was observed in the emergency department for approximately 4 hours after giving herself her epinephrine. She is had no signs of an anaphylactic reaction. No signs of went an allergic reaction from the bee sting. No respiratory distress. No vomiting. No fevers. Will discharge patient home. She states that she already has a refill of her epinephrine so she does not need a new prescription. She was given return precautions. She expressed understanding and agreement. Discharge Plan Departure Patient Disposition: Home Clinical Impression: Bee sting reaction Instructions: DI for Insect Bites and Stings Activity Restrictions/Additional Instructions: It is important that you keep an EpiPen with you at all times. Recommend that you contact your primary doctor for a follow-up. Return to the emergency department for new or worsening symptoms. Prescriptions: No Action norethin-e.estradiol triphasic [Alyacen (28)] 1 EACH tablet 1 ea PO DAILY Qty: 0 acetaminophen 325 MG tablet 650 mg PO PRN PRN (Reason: pain) Qty: 0 Patient Comments: patient states does not take very often oxycodone-acetaminophen [Percocet] 5 MG/325 MG tablet 0 tab PO Q4HP PRNQty: 20 0RF tramadol 50 mg tablet 1 tab PO BID PRN (Reason: pain) Patient Comments: take 1 tablet by mouth twice a day if needed for pain hydroxyzine HCl 25 mg tablet 1 tab PO Q8H PRN (Reason: unknown) Patient Comments: take 1 tablet by mouth every 8 hours albuterol sulfate [Ventolin HFA] 90 mcg/actuation HFA aerosol inhaler 2 puff Inhalation Q4H PRN (Reason: Shortness Of Breath) Patient Comments: inhale 2 puffs by mouth every 4 hours if needed for wheezing or shortness of breath propranolol 20 mg tablet 1 tab PO TID Patient Comments: patient states takes 2 to 3 times a day ondansetron 4 mg tablet,disintegrating 4 mg PO TID-QID PRN (Reason: nausea and vomiting) Qty: 10 0RF fluconazole 150 mg tablet 150 mg PO Q3D Qty: 2 0RF Rx Instructions: may repeat second dose 72 hrs after first dose if symptoms persist Referrals: Елена Rodriguez PA-C [Primary Care Provider] - Stand Alone Forms: Patient Portal/API
[2023-03-07] MEDS: SODIUM CHLORIDE 0.9% 1,000 ML 1000 ML IV (18:40)
[2023-03-07] MEDS: IBUPROFEN 400 MG TABLET 800 MG PO (19:44)
== END 2023-03-07 22:03 | disposition home or self-care (01) ==
PROVIDERS: Emergency Provider Emergency Medicine; PCP Physician Assistant
DX: T63.441A Toxic effect of venom of bees, accidental (unintentional), initial encounter (principal); R00.1 Bradycardia, unspecified
CPT/HCPCS: 36415; 93005; 96360; 96361; 99284